=== PATIENT | female | born 1970 | race Caucasian/White ===

== ENCOUNTER 2022-03-18 18:44 | Outpatient (REF) | payer BC, SELFPAY ==
--- NOTE | ~2022-03-18 | MR_ITS ---
MRI OF THE BRAIN WITH AND WITHOUT IV CONTRAST INDICATION: Tinnitus. Rule out acoustic neuroma. COMPARISON: None available. TECHNIQUE: Multiplanar multisequence MR imaging of the brain was obtained without and following the administration of 5 mL of Gadavist without complication. FINDINGS: The inner ear structures including the cochlea, vestibules, and semicircular canals exhibit preserved CSF signal intensity with no pathologic enhancement. The vestibular aqueducts are not enlarged. Cranial nerves VII and VIII complexes are normal in morphology. No enhancing CP angle/retrocochlear lesion. There is thin versus dehiscent bone overlying the left superior semicircular canal that can be followed with a high-resolution temporal bone CT if there is clinical concern for third window phenomenon/semicircular canal dehiscence as an etiology for tinnitus. There is no pathologic intracranial enhancement. No parenchymal signal abnormality. No acute infarct on diffusion-weighted imaging. No intracranial hemorrhage on the gradient series. No hydrocephalus, extra-axial surface collection, or herniation. Partially imaged globular enlargement of the pituitary gland in craniocaudal dimension for which a pituitary protocol MRI and correlation with endocrine function tests would be helpful in further assessment. An underlying pituitary adenoma is not excluded. Cerebellar tonsils are normally positioned. Craniocervical junction is normal. Osseous marrow signal intensity remains homogeneous. No significant soft tissue abnormality is appreciated. Leftward deviation of the nasal septum with a leftward directed nasal septal spur. MR/MR head/brain wo/w con IMPRESSION: - No enhancing retrocochlear pathology. There is thin versus dehiscent bone overlying the left superior semicircular canal that can be followed with a high-resolution temporal bone CT if there is clinical concern for third window phenomenon/semicircular canal dehiscence as an etiology for tinnitus. - Partially imaged globular enlargement of the pituitary gland in craniocaudal dimension for which a pituitary protocol MRI and correlation with endocrine function tests would be helpful in further assessment. An underlying pituitary adenoma is not excluded.
== END 2022-03-18 18:45 | disposition home or self-care (01) ==
LOC: HO.MRI 18:44
PROVIDERS: Visit Provider Psychiatry & Neurology Neurology
DX: H93.19 Tinnitus, unspecified ear (principal)
CPT/HCPCS: 70553; A9585

== ENCOUNTER 2023-09-23 10:59 | Outpatient (REF) | payer BC, SELFPAY ==
--- NOTE | ~2023-09-23 | XR_ITS ---
EXAMINATION: XR HAND, LEFT XR FINGER, LEFT CLINICAL INFORMATION: Nodule/bump at the base of the 3rd digit. COMPARISON: None available. TECHNIQUE: PA, oblique, and lateral views of the left hand. Oblique and lateral views of the left 3rd digit. FINDINGS: No acute fracture or dislocation. No joint space narrowing or marginal osteophytes. Normal carpal alignment. No periosteal reaction or cortical erosion. No abnormal soft tissue calcification. No radiopaque foreign body. XR/XR hand LT min 3V IMPRESSION: 1. No acute osseous abnormality. 2. No radiopaque foreign body. No abnormal soft tissue calcification.
--- NOTE | ~2023-09-23 | XR_ITS ---
EXAMINATION: XR HAND, LEFT XR FINGER, LEFT CLINICAL INFORMATION: Nodule/bump at the base of the 3rd digit. COMPARISON: None available. TECHNIQUE: PA, oblique, and lateral views of the left hand. Oblique and lateral views of the left 3rd digit. FINDINGS: No acute fracture or dislocation. No joint space narrowing or marginal osteophytes. Normal carpal alignment. No periosteal reaction or cortical erosion. No abnormal soft tissue calcification. No radiopaque foreign body. XR/XR finger LT min 2V IMPRESSION: 1. No acute osseous abnormality. 2. No radiopaque foreign body. No abnormal soft tissue calcification.
== END 2023-09-23 11:00 | disposition home or self-care (01) ==
LOC: HO.HMGCX 10:59
PROVIDERS: PCP Internal Medicine; Visit Provider Internal Medicine
DX: R22.32 Localized swelling, mass and lump, left upper limb (principal)
CPT/HCPCS: 73130; 73140

== ENCOUNTER 2025-02-21 09:45 | Outpatient (AMB) | payer BC, SELFPAY ==
--- NOTE | 2025-02-21 09:48 | MHC.PC.OV ---
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 Accompanied by: Self / Same As Patient Allergies No Known Allergies Allergy (Verified 02/21/25 16:30) Medication List - Last Reconciled 02/21/25 by Braden Villanueva MD atorvastatin 10 mg PO DAILY ornhfosvzw-oqbsxspdhvucu-ejwj 50-300-40 mg (Fioricet) 1 cap PO Q8H PRN cyclobenzaprine 10 mg PO BEDTIME estradiol patches transdermal estradiol 0.01%(0.1mg/gram) vaginal fluticasone propionate 50 mcg/actuation (Flonase Allergy Relief) 1 spray intranasal DAILY montelukast 10 mg PO DAILY progesterone micronized 100 mg PO BEDTIME Tobacco use date assessed: 02/21/25 Dental Screening Dental Screen Date: 02/21/25 Did you have a dental visit in the last 12 months?: Yes Did you have a dental problem in the last 6 months where you did not have access to dental care?: No Was dental information given to patient?: Patient has dentist [facility] Medical History (Updated 02/21/25 @ 16:31 by Braden Villanueva MD) Migraines Allergic rhinitis due to allergen General medical exam Family History Father Low BP Arthritis Mother BP (high blood pressure) Arthritis Social History Housing: House Alcohol intake: current Alcohol intake frequency: a few times a month Patient Tobacco Use Status: Former Tobacco user service: No Current occupational status: employed Cognitive needs: No Hearing needs: No Vision needs: Yes (rx glasses) Questionnaire PHQ-9 Over the last 2 weeks, how often have you been bothered by any of the following problems? 1. Little interest or pleasure in doing things: not at all 2. Feeling down, depressed, or hopeless: not at all 3. Trouble falling or staying asleep, or sleeping too much: not at all 4. Feeling tired or having little energy: not at all 5. Poor appetite or overeating: not at all 6. Feeling bad about yourself - or that you are a failure or have let yourself or your family down: not at all 7. Trouble concentrating on things, such as reading the newspaper or watching television: not at all 8. Moving or speaking so slowly that other people could have noticed. Or the opposite - being so fidgety or restless that you have been moving around a lot more than usual: not at all 9. Thoughts that you would be better off or of hurting yourself in some way: not at all Total score: 0 Source: Developed by Drs. Deion Liu, Mindy Schaefer, Inocencio Mckeon and colleagues, with an educational orin from [employer]. Thrive Questionnaire Date Thrive assessed: 02/21/25 I am a: Patient What is your living situation today?: I have a steady place to live Within the past 12 months, did the food you bought not last and you didn't have the money to get more?: Never true Within the past 12 months, did you worry whether your food would run out before you got money to buy more?: Never true Do you have trouble paying for medicines?: No Do you have trouble getting transportation to medical appointments?: No Do you have trouble paying your heating and electricity bill?: No Do you have trouble taking care of your child, family member or friend?: No Do you have trouble with day-to-day activities such as bathing, preparing meals, shopping, managing finances, etc.?: No Are you currently unemployed and looking for a job?: No Are you interested in more education?: No Please select the resources that you would like help with: None THRIVE Score: 0 AUDIT C Alcohol Use Questionnaire (AUDIT-C) 1. How often do you have a drink containing alcohol?: Monthly or less 2. How many drinks containing alcohol do you have on a typical day when you are drinking?: 1 or 2 3. How often do you have six or more drinks on one occasion?: Never Total Score: 1 JON-7 AMB Questionnaire JON-7 Date JON - 7 assessed: 02/21/25 Feeling nervous, anxious, or on edge: 2 = More than half the days Not being able to stop or control worryin = More than half the days Worrying too much about different things: 2 = More than half the days Trouble relaxin = Several days Being so restless that it is hard to sit still: 0 = Not at all Becoming easily annoyed or irritable: 1 = Several days Feeling afraid as if something awful might happen: 1 = Several days Total JON-7 score (0-4 normal; 5-9 mild; 10-14 moderate; 15-21 severe): 9 Source: Developed by Drs. Deion Liu, Midny Schaefer, Inocencio Mckeon and colleagues, with an educational orin from [employer]. Physical exam (Primary Care) Vital Signs: Last Vital Signs Temp 97.7 F 02/21/25 09:54 Pulse 55 02/21/25 09:54 Resp 14 02/21/25 09:54 BP 108/69 02/21/25 09:54 Pulse Ox 98 02/21/25 09:54 Oxygen Delivery Method Room Air 02/21/25 09:54 Care Plan Goal for BP management: BP in range BMI result Body Mass Index 21.7 Tobacco/Smoking Status: Tobacco use Status Tobacco use date assessed 02/21/25 02/21/25 09:50 Patient Tobacco Use Status Former Tobacco user 02/21/25 10:00 PHQ-9: PHQ-9 Score PHQ-9: Total score 0 02/21/25 10:45 Thrive Assessment: Date of Thrive Assessment Date Thrive assessed 02/21/25 02/21/25 09:50 Coding Level of Care Code New Pt Level 4 (02537) New Pt Prev Care 40-64y(47485) Diagnoses Allergic rhinitis due to allergen J30.9 Migraines G43.909 General medical exam Z00.00 Assessment & Plan Assessment & Plan (1) Allergic rhinitis due to allergen: Code(s): J30.9 - Allergic rhinitis, unspecified Category: Medical Plan: Referral for lead developer made. She is interested in trying out biologicals. (2) Migraines: Code(s): G43.909 - Migraine, unspecified, not intractable, without status migrainosus Category: Medical Plan: Propranolol and cyclobenzaprine started, Neurology appt made (3) General medical exam: Code(s): Z00.00 - Encounter for general adult medical examination without abnormal findings Category: Medical Plan: LENY gurrola. She brought the results along with her. Plan History of Present Illness She is requesting an annual physical. In addition she is a 55-year-old female presenting with recurrent headaches associated with sexual activity. These headaches began approximately six weeks ago, happening around five times, unrelated to sexual partner presence. She tried preemptive ibuprofen use unsuccessfully but finds relief over an hour with medication containing acetaminophen, caffeine, and butalbital and ice packs. With concurrent neck tension and difficulty with sleeping, she uses a combination of medications for her allergic rhinitis exacerbated during high pollen seasons. She is currently managing vaginal atrophy with topical estrogen and hyaluronic acid-based suppositories and has explored alternative options following insurance denial for vaginal estrogen rings. The patient had a previous skating injury in October leading to right knee discomfort affecting daily activities. She is on statin therapy for hyperlipidemia, successfully maintaining safe LDL levels. The patient also raises concerns about tinnitus and detectable high-frequency hearing loss previously evaluated but managed conservatively. She experiences persistent hemorrhoid irritation despite topical treatments, and rosacea flare-ups are considered stress-related. Social History - Engaged in couples counseling, improving sexual health - - Reports increased stress contributing to various health issues - Reports adjustment in medication use during non-stressful allergy periods - Notes impact of knee injury on daily activities and exercise routines Review of Systems - Neurological: Reports headaches triggered by sexual activity and neck tension. Reports tinnitus. - HEENT: Reports dry ears and sinus headaches. Denies hearing aids need despite high-frequency hearing loss. - Respiratory: Reports using Singulair and Flonase for allergic rhinitis. - Skin: Reports rosacea flares. - Musculoskeletal: Reports knee pain and neck tension. - Genitourinary: Reports vaginal dryness and discomfort, using estrogen and hyaluronic acid treatments. - Gastrointestinal: Reports a persistent hemorrhoid with itching. Physical Exam General: Cooperative and healthy appearing Nutritional Appearance: Well nourished Orientation/consciousness: Patient oriented x3 Limitations: No limitations Head: Normal to inspection General: Appearance normal, both eyes and all related structures Neck: Normal visual inspection Chest: Normal palpation of entire chest wall Respiratory: N ormal respiratory effort Neurology: Patient oriented x3, reports headaches associated with sexual activity, tinnitus, and tension in the neck. Results - Tests: CAT scan with contrast - normal findings - Labs: LDL within range Plan I addressed her recurrent sexual headaches with a recommendation to use the prescription medication one hour before anticipated sexual activity, considering a neurology referral if ineffective. A beta mk may be considered for preventive therapy. For tension and neck muscle strain, I prescribed a muscle relaxant. Allergic rhinitis management remains unchanged with current medications deemed adequate. I advised on possible hemorrhoid management escalation and continuation of vaginal estrogen therapy. Knee injury may warrant further rest. Her cholesterol management remains effective with current medication and dosing. Patient was informed and verbally consented to the use of an ambient scribe for clinic note documentation during this visit. Discussion Notes I discussed the presentation and management options of primary issues including sexual headaches and tension-related neck pain. The benefits and potential side effects of using a beta mk for headache prevention were outlined, noting possible adverse effects like fatigue or decreased libido. For allergic symptoms, I indicated sublingual immunotherapy as an alternative if patient experienced significant persistent symptoms, pending further advice from an lead developer. I encouraged continued statin therapy, assuring her the LDL management did not necessitate alteration. Additionally, I confirmed her understanding of hemorrhoidal care instructions and emphasized the option for surgical evaluation if conservative measures remain ineffective. We reviewed the importance of maintaining her current management strategies for tinnitus, knee pain, and vaginal atrophy. She was advised to seek follow-up care if her conditions worsen or new symptoms arise. Patient Instructions - Use prescribed headache medication one hour before sexual activity. - Continue current allergy medications as prescribed. - Use Preparation H for hemorrhoidal symptoms. - Maintain current vaginal estrogen use as directed. - Rest knee and avoid aggravating activities. - Follow up with an lead developer for further allergy management. - Contact us or seek immediate care if symptoms worsen or new problems develop. Orders: Referrals Allergy & Immunology Referral J30.9 - Allergic rhinitis, unspecified Neurology Referral G43.909 - Migraine, unspecified, not intractable, without status migrainosus Medications: New cyclobenzaprine 10 mg PO BEDTIME 14 tabs 0RF vkrvizspez-icdeeizarbhqd-okiz 50-300-40 mg (Fioricet) 1 cap PO Q8H PRN 30 caps 0RF pain propranolol 20 mg PO BID 60 tabs 0RF
[2025-02-21 09:54] VITALS: BP 108/69; PULSE 55; RESP 14; TEMP 36.5; O2SAT 98; BMI 21.7
== END 2025-02-21 10:47 | disposition home or self-care (01) ==
LOC: HO.HMCSH 09:45
PROVIDERS: PCP Internal Medicine; Visit Provider Internal Medicine
DX: Z00.00 Encounter for general adult medical examination without abnormal findings (principal); J30.9 Allergic rhinitis, unspecified; G43.909 Migraine, unspecified, not intractable, without status migrainosus

== ENCOUNTER → 2025-02-21 09:45 | Outpatient (BNVA) | payer BC, SELFPAY | PROVIDERS: PCP Internal Medicine; Visit Provider Internal Medicine ==